=== PATIENT | female | born 1985 | race Caucasian/White ===

== ENCOUNTER 2018-03-28 12:34 | Inpatient (IN) | END 2018-03-29 15:38 | disposition home or self-care (01) | DRG 833 ==

== ENCOUNTER 2018-04-18 16:08 | Inpatient (IN) | payer OTHER ==
[~2018-04-18] VITALS: Ht 157.5 cm; Wt 90.9 kg
[~2018-04-18 16:08] MED LIST: PREN-99 PO
[2018-04-18 16:54] VITALS: Ht 157.5 cm; Wt 90.9 kg
[2018-04-18] MEDS ORDERED: AL HYDROX/MG HYDROX/SIMETH 30 ML CUP PO PRN (22:30)
[2018-04-18] MEDS ORDERED: ACETAMINOPHEN 325 MG TAB PO PRN (22:30)
[2018-04-18] MEDS: LACTATED RINGER'S 1,000 ML IV SCH (23:47)
--- NOTE | 2018-04-19 03:05 | TRIAGE ---
OB Triage Datetime Report Generated by CPN: 04/19/2018 03:04 Datetime: 04/19/2018 01:00 Stage of : Antepartum Labor Evaluation Frequency: NONE Monitor Mode: External Resting Tone Arp: Relaxed Heart Rate FHR Baseline Rate: 125 Monitor Mode: External US Variability: Moderate 6-25 bpm Accelerations: 15X15 Decelerations: None Category: Category I Pain Assessment Pain Scale: 0 Pain Presence: None/Denies Pain Type: N/A Datetime: 04/19/2018 00:11 Stage of : Antepartum Assessment Type: Admission Assessment Vaginal Bleeding: None Maternal Assessment Level of Consciousness: Fully Conscious DTR's/Clonus: DTRs 2+; No Clonus Headache: Denies Blurred Vision: No Respiratory Effort: Unlabored; Regular Rhythm; Equal Expansion Breath Sounds, Left: Clear and Equal Breath Sounds, Right: Clear and Equal Nausea/Vomiting: Denies RUQ Epigastric Pain: Denies Lower Extremities Edema: None Degree: None Upper Extremities Edema: None Degree: None Facial Edema: None Fall Risk Assessment History of Falling: (0) No Secondary Diagnosis: (0) No Ambulatory Aid: (0) Bedrest/Nurse Assist IV Therapy: (20) Yes Gait: (0) Normal/Bedrest/Immobile Mental Status: (0) Oriented to Own Ability Fall Score: 20 Fall Risk Score Definition: No Risk: No action required Labor Evaluation Frequency: NONE Resting Tone Arp: Relaxed Heart Rate FHR Baseline Rate: 125 Variability: Moderate 6-25 bpm Accelerations: 15X15 Decelerations: None Category: Category I Pain Assessment Pain Scale: 0 Pain Presence: None/Denies Pain Type: N/A Vaginal Exam Membrane Status: Intact Datetime: 04/18/2018 20:56 Monitor Mode: External Quality: Mild Pattern: Normal: <= 5 Contractions in 10 Minutes Resting Tone Arp: Relaxed Heart Rate FHR Baseline Rate: 120 Monitor Mode: External US FHR Baseline Changes: No Baseline Change Variability: Moderate 6-25 bpm Accelerations: 15X15 Decelerations: None Category: Category I Datetime: 04/18/2018 20:13 Monitor Mode: External Pattern: Normal: <= 5 Contractions in 10 Minutes Resting Tone Arp: Relaxed Heart Rate FHR Baseline Rate: 130 Monitor Mode: External US FHR Baseline Changes: No Baseline Change Variability: Moderate 6-25 bpm Accelerations: 15X15 Decelerations: None Category: Category I Datetime: 04/18/2018 19:29 Stage of : OB Triage Monitor Mode: External Quality: Mild Pattern: Normal: <= 5 Contractions in 10 Minutes Resting Tone Arp: Relaxed Heart Rate FHR Baseline Rate: 125 Monitor Mode: External US FHR Baseline Changes: No Baseline Change Variability: Moderate 6-25 bpm Accelerations: 15X15 Decelerations: None Category: Category I Pain Assessment Pain Scale: 0 Pain Presence: None/Denies Pain Type: N/A Datetime: 04/18/2018 18:28 Labor Evaluation Frequency: 0 Monitor Mode: External Heart Rate FHR Baseline Rate: 120 Monitor Mode: External US FHR Baseline Changes: No Baseline Change Variability: Moderate 6-25 bpm Accelerations: 15X15 Decelerations: None Category: Category I Pain Presence: None/Denies Datetime: 04/18/2018 16:54 Labor Evaluation Frequency: 0 Monitor Mode: External Heart Rate FHR Baseline Rate: 120 Monitor Mode: External US FHR Baseline Changes: No Baseline Change Variability: Moderate 6-25 bpm Accelerations: 15X15 Decelerations: None Category: Category I Pain Presence: None/Denies Datetime: 04/18/2018 16:27 Stage of : OB Triage Assessment Type: Triage Maternal Assessment Level of Consciousness: Fully Conscious DTR's/Clonus: DTRs 2+; No Clonus Headache: Denies Blurred Vision: No Respiratory Effort: Unlabored; Regular Rhythm; Equal Expansion Breath Sounds, Left: Clear and Equal Breath Sounds, Right: Clear and Equal Nausea/Vomiting: Denies RUQ Epigastric Pain: Denies Facial Edema: None Temperature Route: Axillary Fall Risk Assessment History of Falling: (0) No Secondary Diagnosis: (0) No Ambulatory Aid: (0) Bedrest/Nurse Assist IV Therapy: (0) No Gait: (0) Normal/Bedrest/Immobile Mental Status: (0) Oriented to Own Ability Fall Score: 0 Fall Risk Score Definition: No Risk: No action required Datetime: 04/18/2018 15:32 Time of Arrival: 04/18/2018 16:20 EGA: 37.2 Arrived By: Ambulatory Arrived From: Office Chief Complaint: PT SENT FROM [facility] FOR LONGER MONITORING Movement: Present Contractions: Denies/Absent Rupture of Membranes: Denies Vaginal Bleeding: None Vaginal Discharge: Denies Recent Sexual Intercouse: Denies Abdominal Trauma: Not Applicable Patient Complaints: None Initial Plan: NST, BPP Datetime: 03/29/2018 16:00 Stage of : Antepartum Maternal Assessment Level of Consciousness: Fully Conscious Headache: Denies Nausea/Vomiting: Denies Pain Presence: None/Denies Datetime: 03/29/2018 15:03 Stage of : Antepartum Maternal Assessment Level of Consciousness: Fully Conscious Headache: Denies Nausea/Vomiting: Denies Pain Presence: None/Denies Datetime: 03/29/2018 14:00 Stage of : Antepartum Maternal Assessment Level of Consciousness: Fully Conscious Headache: Denies Nausea/Vomiting: Denies Pain Presence: None/Denies Datetime: 03/29/2018 13:57 Maternal Assessment Level of Consciousness: Fully Conscious Headache: Denies Blurred Vision: No Respiratory Effort: Unlabored Nausea/Vomiting: Denies RUQ Epigastric Pain: Denies Pain Presence: None/Denies Datetime: 03/29/2018 13:00 Stage of : Antepartum Maternal Assessment Level of Consciousness: Fully Conscious Headache: Denies Nausea/Vomiting: Denies Pain Presence: None/Denies Datetime: 03/29/2018 12:00 Maternal Assessment Level of Consciousness: Fully Conscious Headache: Denies Blurred Vision: Yes Respiratory Effort: Unlabored Nausea/Vomiting: Denies RUQ Epigastric Pain: Denies Bedside Blood Glucose: 83 Resting Tone Arp: Relaxed Pain Presence: None/Denies Datetime: 03/29/2018 11:06 Stage of : Antepartum Maternal Assessment Level of Consciousness: Fully Conscious Headache: Denies Blurred Vision: No Respiratory Effort: Unlabored Nausea/Vomiting: Denies RUQ Epigastric Pain: Denies Labor Evaluation Frequency: 0 Monitor Mode: External Resting Tone Arp: Relaxed Heart Rate FHR Baseline Rate: 120 Monitor Mode: External US Variability: Moderate 6-25 bpm Accelerations: 15X15 Decelerations: None Pain Assessment Pain Scale: 0 Pain Presence: None/Denies Vaginal Exam Membrane Status: Intact Vaginal Bleeding: None Datetime: 03/29/2018 10:07 Comments: nst q shift Datetime: 03/29/2018 09:54 Assessment Type: Ongoing Assessment Maternal Assessment Level of Consciousness: Fully Conscious DTR's/Clonus: DTRs 2+; No Clonus Headache: Denies Blurred Vision: No Respiratory Effort: Unlabored; Regular Rhythm; Equal Expansion Breath Sounds, Left: Clear and Equal Breath Sounds, Right: Clear and Equal Nausea/Vomiting: Denies RUQ Epigastric Pain: Denies Lower Extremities Edema: None Degree: None Upper Extremities Edema: None Degree: None Facial Edema: None Fall Risk Assessment History of Falling: (0) No Secondary Diagnosis: (0) No Ambulatory Aid: (0) Bedrest/Nurse Assist IV Therapy: (20) Yes Gait: (0) Normal/Bedrest/Immobile Mental Status: (0) Oriented to Own Ability Fall Score: 20 Fall Risk Score Definition: No Risk: No action required Datetime: 03/29/2018 09:50 Maternal Assessment Level of Consciousness: Fully Conscious DTR's/Clonus: DTRs 2+ Headache: Denies Blurred Vision: No Respiratory Effort: Unlabored Breath Sounds, Left: Clear and Equal Breath Sounds, Right: Clear and Equal Nausea/Vomiting: Denies RUQ Epigastric Pain: Denies Bedside Blood Glucose: 79 Pain Presence: None/Denies Datetime: 03/29/2018 09:08 Respiratory Effort: Unlabored Labor Evaluation Frequency: 0/hr Monitor Mode: External Heart Rate FHR Baseline Rate: 120 Monitor Mode: External US Variability: Moderate 6-25 bpm Accelerations: 15X15 Decelerations: None Pain Presence: None/Denies Datetime: 03/29/2018 08:04 Assessment Type: Ongoing Assessment Maternal Assessment Level of Consciousness: Fully Conscious DTR's/Clonus: DTRs 2+; No Clonus Headache: Denies Blurred Vision: No Respiratory Effort: Unlabored; Regular Rhythm; Equal Expansion Breath Sounds, Left: Clear and Equal Breath Sounds, Right: Clear and Equal Nausea/Vomiting: Denies RUQ Epigastric Pain: Denies Lower Extremities Edema: None Degree: None Upper Extremities Edema: None Degree: None Facial Edema: None Fall Risk Assessment History of Falling: (0) No Secondary Diagnosis: (0) No Ambulatory Aid: (0) Bedrest/Nurse Assist IV Therapy: (0) No Gait: (0) Normal/Bedrest/Immobile Mental Status: (0) Oriented to Own Ability Fall Score: 0 Fall Risk Score Definition: No Risk: No action required Datetime: 03/29/2018 07:16 Stage of : Antepartum Labor Evaluation Frequency: 0 Monitor Mode: External Resting Tone Arp: Relaxed Heart Rate FHR Baseline Rate: 125 Monitor Mode: External US Variability: Moderate 6-25 bpm Accelerations: 15X15 Decelerations: None Pain Presence: None/Denies Datetime: 03/29/2018 06:59 Labor Evaluation Frequency: NONE Monitor Mode: External Resting Tone Arp: Relaxed Heart Rate FHR Baseline Rate: 120 Monitor Mode: External US Variability: Moderate 6-25 bpm Accelerations: 15X15 Decelerations: None Category: Category I Pain Presence: None/Denies Pain Type: N/A Datetime: 03/29/2018 06:20 Stage of : Antepartum Datetime: 03/29/2018 06:00 Labor Evaluation Frequency: NONE Monitor Mode: External Resting Tone Arp: Relaxed Heart Rate FHR Baseline Rate: 120 Variability: Moderate 6-25 bpm Comments: TRACING UNREADABLE DUE TO LOC WITH PT'S POSITION WHILE SLEEPING. Pain Presence: None/Denies Pain Type: N/A Datetime: 03/29/2018 05:06 Stage of : Antepartum Temperature Route: Oral Contraction Comments: PT DENIES CRAMPING Comments: PT STATES + FM Pain Presence: None/Denies Pain Type: N/A Vaginal Exam Membrane Status: Intact Datetime: 03/29/2018 05:00 Labor Evaluation Frequency: X4 Monitor Mode: External Duration (sec)2399: 60-100 Resting Tone Arp: Relaxed Heart Rate FHR Baseline Rate: 120 Variability: Moderate 6-25 bpm Comments: LOC DUE TO MATERNAL OBESITY AND ACTIVE FETUS Pain Presence: None/Denies Pain Type: N/A Datetime: 03/29/2018 04:00 Labor Evaluation Frequency: X1 Monitor Mode: External Duration (sec)2399: 70 Quality: Mild Resting Tone Arp: Relaxed Heart Rate FHR Baseline Rate: 125 Variability: Moderate 6-25 bpm Comments: TRACING UNREADABLE DUE TO LOC Pain Presence: None/Denies Pain Type: N/A Pain Assessment Comments: PT SLEEPING BUT EASILY AROUSED Datetime: 03/29/2018 03:00 Labor Evaluation Frequency: X1 Monitor Mode: External Duration (sec)2399: 70 Quality: Mild Resting Tone Arp: Relaxed Heart Rate FHR Baseline Rate: 135 Monitor Mode: External US Variability: Moderate 6-25 bpm Accelerations: 15X15 Decelerations: None Category: Category I Pain Presence: None/Denies Pain Type: N/A Pain Assessment Comments: PT SLEEPING WITH EVEN UNLABORED BREATHING Datetime: 03/29/2018 02:03 Stage of : Antepartum Datetime: 03/29/2018 02:00 Labor Evaluation Frequency: X3 Monitor Mode: External Duration (sec)2399: 50-90 Quality: Mild Resting Tone Arp: Relaxed Heart Rate FHR Baseline Rate: 125 Monitor Mode: External US Variability: Moderate 6-25 bpm Accelerations: 15X15 Decelerations: None Category: Category I Pain Presence: None/Denies Pain Type: N/A Pain Assessment Comments: PT SLEEPING BUT EASILY AROUSED. PT DENIES ANY NEEDS AT THIS TIME. Datetime: 03/29/2018 01:00 Labor Evaluation Frequency: X1 Monitor Mode: External Duration (sec)2399: 50 Quality: Mild Resting Tone Arp: Relaxed Heart Rate FHR Baseline Rate: 125 Monitor Mode: External US Variability: Moderate 6-25 bpm Accelerations: 15X15 Decelerations: None Category: Category I Pain Presence: None/Denies Pain Type: N/A Datetime: 03/29/2018 00:03 Stage of : Antepartum Datetime: 03/29/2018 00:00 Labor Evaluation Frequency: X2 Monitor Mode: External Duration (sec)2399: 40=50 Quality: Mild Resting Tone Arp: Relaxed Heart Rate FHR Baseline Rate: 130 Monitor Mode: External US Variability: Moderate 6-25 bpm Accelerations: 15X15 Decelerations: None Category: Category I Datetime: 03/28/2018 23:51 Stage of : Antepartum Temperature Route: Oral Contraction Comments: PT DENIES CRAMPING Comments: PT STATES BABY IS VERY ACTIVE Pain Presence: None/Denies Pain Type: N/A Pain Assessment Comments: PT DENIES ANY NEEDS AT THIS TIME Datetime: 03/28/2018 23:00 Labor Evaluation Frequency: NONE Monitor Mode: External Resting Tone Arp: Relaxed Heart Rate FHR Baseline Rate: 130 Monitor Mode: External US Variability: Moderate 6-25 bpm Accelerations: 15X15 Decelerations: None Category: Category I Pain Presence: None/Denies Pain Type: N/A Datetime: 03/28/2018 22:00 Labor Evaluation Frequency: NONE Monitor Mode: External Resting Tone Arp: Relaxed Heart Rate FHR Baseline Rate: 130 Monitor Mode: External US Variability: Moderate 6-25 bpm Accelerations: 15X15 Decelerations: None Category: Category I Pain Presence: None/Denies Pain Type: N/A Datetime: 03/28/2018 21:00 Labor Evaluation Frequency: NONE Monitor Mode: External Resting Tone Arp: Relaxed Heart Rate FHR Baseline Rate: 125 Monitor Mode: External US Variability: Moderate 6-25 bpm Accelerations: 15X15 Decelerations: None Category: Category I Pain Presence: None/Denies Pain Type: N/A Datetime: 03/28/2018 20:00 Labor Evaluation Frequency: NONE Monitor Mode: External Resting Tone Arp: Relaxed Heart Rate FHR Baseline Rate: 125 Monitor Mode: External US Variability: Moderate 6-25 bpm Accelerations: 15X15 Decelerations: None Category: Category I Pain Presence: None/Denies Pain Type: N/A Datetime: 03/28/2018 19:36 Stage of : Antepartum Assessment Type: Ongoing Assessment Maternal Assessment Level of Consciousness: Fully Conscious DTR's/Clonus: DTRs 2+; No Clonus Headache: Denies Blurred Vision: No Respiratory Effort: Unlabored; Regular Rhythm; Equal Expansion Breath Sounds, Left: Clear and Equal Breath Sounds, Right: Clear and Equal Nausea/Vomiting: Denies RUQ Epigastric Pain: Denies Lower Extremities Edema: None Degree: None Upper Extremities Edema: None Degree: None Facial Edema: None Temperature Route: Oral Fall Risk Assessment History of Falling: (0) No Secondary Diagnosis: (0) No Ambulatory Aid: (0) Bedrest/Nurse Assist IV Therapy: (0) No Gait: (0) Normal/Bedrest/Immobile Mental Status: (0) Oriented to Own Ability Fall Score: 0 Fall Risk Score Definition: No Risk: No action required Monitor Mode: External Contraction Comments: PT DENIES CRAMPING Monitor Mode: External US Comments: PT STATES + FM Pain Presence: None/Denies Pain Type: N/A Vaginal Exam Membrane Status: Intact Datetime: 03/28/2018 18:49 Labor Evaluation Frequency: 0 Monitor Mode: External Resting Tone Arp: Relaxed Heart Rate FHR Baseline Rate: 120 Monitor Mode: External US FHR Baseline Changes: No Baseline Change Variability: Moderate 6-25 bpm Accelerations: 15X15 Decelerations: None Category: Category I Datetime: 03/28/2018 18:00 Labor Evaluation Frequency: 0 Monitor Mode: External Pattern: Normal: <= 5 Contractions in 10 Minutes Resting Tone Arp: Relaxed Heart Rate FHR Baseline Rate: 120 Monitor Mode: External US FHR Baseline Changes: No Baseline Change Variability: Moderate 6-25 bpm Accelerations: 15X15 Decelerations: None Category: Category I Datetime: 03/28/2018 17:00 Labor Evaluation Frequency: 0 Monitor Mode: External Pattern: Normal: <= 5 Contractions in 10 Minutes Resting Tone Arp: Relaxed Heart Rate FHR Baseline Rate: 120 Monitor Mode: External US FHR Baseline Changes: No Baseline Change Variability: Moderate 6-25 bpm Accelerations: 15X15 Decelerations: None Category: Category I Datetime: 03/28/2018 16:21 Stage of : Antepartum Temperature Route: Oral Pain Presence: None/Denies Pain Goal: 0 Datetime: 03/28/2018 16:14 Labor Evaluation Frequency: 6-8 Monitor Mode: External Duration (sec)2399: 80-100 Quality: Mild Resting Tone Arp: Relaxed Contraction Comments: DOES NOT FEEL CONTRACTIONS Heart Rate FHR Baseline Rate: 120 Monitor Mode: External US FHR Baseline Changes: No Baseline Change Variability: Moderate 6-25 bpm Accelerations: 15X15 Decelerations: None Category: Category I Datetime: 03/28/2018 16:09 Stage of : Antepartum Datetime: 03/28/2018 15:40 Monitor Mode: External Heart Rate FHR Baseline Rate: 120 Monitor Mode: External US FHR Baseline Changes: No Baseline Change Variability: Moderate 6-25 bpm Accelerations: 15X15 Decelerations: None Category: Category I Datetime: 03/28/2018 14:17 Assessment Type: Admission Assessment Vaginal Bleeding: None Maternal Assessment Level of Consciousness: Fully Conscious DTR's/Clonus: DTRs 2+; No Clonus Headache: Denies Blurred Vision: No Respiratory Effort: Unlabored; Regular Rhythm; Equal Expansion Breath Sounds, Left: Clear and Equal Breath Sounds, Right: Clear and Equal Nausea/Vomiting: Denies RUQ Epigastric Pain: Denies Facial Edema: None Fall Risk Assessment History of Falling: (0) No Secondary Diagnosis: (0) No Ambulatory Aid: (0) Bedrest/Nurse Assist IV Therapy: (20) Yes Gait: (0) Normal/Bedrest/Immobile Mental Status: (0) Oriented to Own Ability Fall Score: 20 Fall Risk Score Definition: No Risk: No action required Heart Rate FHR Baseline Rate: 130 Pain Assessment Pain Scale: 0 Datetime: 03/28/2018 13:15 Time of Arrival: 03/28/2018 13:15 EGA: 34.2 Arrived By: Wheelchair
[2018-04-19] MEDS: LACTATED RINGER'S 1,000 ML IV SCH ×3 (06:34→22:17)
[2018-04-19] MEDS: PRENATAL VITAMIN PO SCH (09:35)
[2018-04-20] MEDS: LACTATED RINGER'S 1,000 ML IV SCH ×2 (00:50→08:34)
--- NOTE | 2018-04-20 03:51 | CONS ---
DATE OF ADMISSION: 04/18/2018 DATE OF CONSULTATION: 04/19/2018 HISTORY OF PRESENT ILLNESS: The patient was admitted from testing yesterday after she had some nonreactive heart tone for a few minutes. Also, at the clinic, her MARIA G was 6.2 cm at the hospital, her heart tone are interrupted but ove rall reassuring, received high received hydration and her MARIA G today is 6.2. PLAN: I do recommend in-house management until her MARIA G is 8. Otherwise, continue with the in-house management and continue with the heart tone monitoring continuously. Secondarily, she is diabe tic, so treat the diabetes as previously stated in the recommendation. Lastly, she does have a histo ry of oligohydramnios; therefore, more precaution is necessary in terms of her management. Please do not discharge until it is okay by a perinatologist. She can delivery if there is nonreassuring feta l heart tones or if she is in labor. Dictated By: MITESH BERRIOS/USAMA Conf#: [id number] DID#: [id number]
[2018-04-20] MEDS: PRENATAL VITAMIN PO SCH (08:34)
[2018-04-20] MEDS ORDERED: OXYTOCIN 30 UNITS/LR 500 ML IV SCH ×3 (16:30→20:51)
[2018-04-20] MEDS ORDERED: CEFAZOLIN 2 GM/50 ML (PMX) 50 ML IVPB ONE (16:30)
[2018-04-20] MEDS ORDERED: CARBOPROST 250 MCG INJ IM PRN ×2 (16:30→21:00)
[2018-04-20] MEDS ORDERED: LIDOCAINE 1% (MPF) 30 ML INJ INJ PRN (16:30)
[2018-04-20] MEDS ORDERED: OXYTOCIN 30 UNITS/LR 500 ML IV PRN ×2 (16:30→21:00)
[2018-04-20] MEDS ORDERED: LACTATED RINGER'S 1,000 ML IV PRN (16:30)
[2018-04-20] MEDS ORDERED: METHYLERGONOVINE 0.2 MG INJ IM PRN ×2 (16:30→21:00)
[2018-04-20] MEDS ORDERED: MISOPROSTOL 200 MCG TAB PR PRN ×2 (16:30→21:00)
[2018-04-20] MEDS ORDERED: CITRIC ACID/NA CITRATE 30 ML CUP PO ONE (19:20)
--- NOTE | 2018-04-20 19:21 | PREAC ---
Date/Time of Note Date/Time of Note DATE: 04/20/18 TIME: 19:20 Anesthesia Eval and Record Evaluation Time Pre-Procedure Interview DATE: 04/20/18 TIME: 19:20 Age 32 Sex female NPO: Other (7) lunch 1300 Preoperative diagnosis low MARIA G 37 Planned procedure c section Past Medical History Past Medical History: Includes : : (4), Para: (2), Gestational age: (38), Gestational diabetes Surgery & Anesthesia Issues No known issue Meds Anticoagulation: No Beta Fritz within 24 hr: No Reason Beta Fritz not given: Pt. not on B-Fritz Reported Medications Vit #76/Iron,Carb/FA (Pnv 29-1 Tablet) 1 Each Tablet, 1 EACH PO DAILY, TAB 03/28/18 Current Medications Lactated Ringer's 1,000 ml @ 125 mls/hr Q8H IV Last administered on 04/20/18at 08:34; Admin Dose 125 MLS/HR; Start 04/18/18 at 22:17 Prenat Multivit/ [place]/Iron/Folic Ac () 1 tab DAILY PO Last administered on 04/20/18at 08:34; Admin Dose 1 TAB; Start 04/19/18 at 09:00 Acetaminophen (Tylenol Tab) 650 mg Q4H PRN PO MILD PAIN(1-3)OR ELEVATED TEMP; Start 04/18/18 at 22:30 Al Hydrox/Mg Hydrox/Simethicone (Mag-Al Plus) 30 ml Q6H PRN PO GASTROINTESTINAL UPSET; Start 04/18/18 at 22:30 Lidocaine (Xylocaine 1% (Mpf)) 30 ml ONCE PRN INJ EPISIOTOMY; Start 04/20/18 at 16:30 Oxytocin/Lactated Ringer's 500 ml @ 500 mls/hr ONCE POST IV ; Start 04/20/18 at 16:30 Oxytocin/Lactated Ringer's 500 ml @ 125 mls/hr POST IV ; Start 04/20/18 at 16:30 Lactated Ringer's 1,000 ml @ 2,000 mls/hr Q30M PRN IV ANESTHESIA Last administered on 04/20/18at 19:17; Admin Dose 2,000 MLS/HR; Start 04/20/18 at 16:30 Oxytocin/Lactated Ringer's 500 ml @ 0 mls/hr ONCE PRN IV VAGINAL BLEEDING; Start 04/20/18 at 16:30 Methylergonovine Maleate (Methergine) 0.2 mg ONCE PRN IM VAGINAL BLEEDING; Start 04/20/18 at 16:30 Carboprost Tromethamine (Hemabate) 250 mcg ONCE PRN IM VAGINAL BLEEDING; Start 04/20/18 at 16:30 Misoprostol (Cytotec) 1,000 mcg ONCE PRN MI VAGINAL BLEEDING; Start 04/20/18 at 16:30 Citric Acid/ Sodium Citrate (Bicitra) 30 ml ONCE ONCE PO ; Start 04/20/18 at 19:20; Stop 04/20/18 at 19:21; Status UNV Meds reviewed: Yes Allergies Coded Allergies: No Known Allergy (Unverified , 03/28/18) Allergies Reviewed: Yes Labs/Studies Labs Reviewed: Reviewed by anesthesiologist Result Diagram: 04/18/18 3372 test: Positive Studies: ECG (n/a), CXR (n/a) Pre-procedure Exam Airway: Adequate mouth opening Mallampati: Mallampati I Teeth: Normal Lung: Normal Heart: Normal ASA Physical Status ASA physical status: 2 Emergency: None Planned Anesthetic Neuraxial: Spinal Planned Pain Management Sub-arachniod narcotics Pre-operative Attestations Prior to commencing anesthesia and surgery, the patient was re-evaluated, there was verification of: *The patient's identity *The results of appropriate recent lab work and preoperative vital signs *The above evaluation not changing prior to induction *Anesthetic plan, risk benefits, alternative and complications discussed with patient/family; questions answered; patient/family understands, accepts and wishes to proceed. SAVITA CAPUTO MD Apr 20, 2018 19:21
[2018-04-20] MEDS ORDERED: METOCLOPRAMIDE 10 MG INJ ONE (19:43)
[2018-04-20] MEDS ORDERED: ONDANSETRON 4 MG INJ ONE (19:43)
[2018-04-20] MEDS ORDERED: morphine SULFATE/PF (10 MG/10 ML) INJ ONE (19:43)
[2018-04-20] MEDS ORDERED: KETOROLAC 30 MG INJ ONE (19:52)
--- NOTE | 2018-04-20 20:02 | PREOPHP ---
DATE OF ADMISSION: 04/18/2018 HISTORY OF PRESENT ILLNESS: This is a 32-year-old lady, 4, para 2 with 1 . Her EDC 05/07/2018 at 37 and 1/7 weeks , admitted to labor and delivery area for IV hydration. Her A FI on admission was 5.3 to 6.3, so she was given IV hydration for the last 48 hours. The MARIA G today d ropped from 6.3 to 4.4, so Dr. Luther was consulted on this and that she advised the patient to be del ivered with indication of severe oligohydramnios. She was also noted to be having some on and off de celeration on the baby and she has also gestational diabetes on diet control. She was scheduled to h ave a repeat , which is what the patient desires. The procedures were explained to her, and she understood everything totally. The risks, benefits, and alternatives were discussed with her as well. PAST PERSONAL HISTORY: No history of TB or asthma. ALLERGIES: NO ALLERGIES. SOCIAL HISTORY: The patient does not smoke. She does not drink. MEDICATIONS: She does not take any drugs except her iron and vitamins. GYNECOLOGIC HISTORY: She had menarche at the age of 12, every 28 days interval, 3 to 4 days duration , and moderate in amount. FAMILY HISTORY: Noncontributory except for family history of diabetes and hypertension. She is grav padilla 4, para 2. First delivery was in 1999 and second in 2009, both by , and she had an abor tion in 2006. REVIEW OF SYSTEMS: CARDIOVASCULAR: No chest pains. RESPIRATORY: No cough. GASTROINTESTINAL: No diarrhea, no vomiting. GENITOURINARY: No dysuria. PHYSICAL EXAMINATION: GENERAL: Reveals a conscious, coherent lady, in no acute distress. VITAL SIGNS: Her blood pressure 120/80, pulse rate 80 per minute, respirations 16 per minute. BREASTS: Within normal limits. HEART: Within normal limits. LUNGS: Within normal limits. ABDOMEN: Term size uterus. Soft. No tenderness noted. Fundic height 36 cm. heart tones 140 per minute. PELVIC: Revealed the cervix to be 1 cm dilated and thick, station floating in cephalic presentation with the bag of water intact. EXTREMITIES: No pedal edema. ADMITTING DIAGNOSIS: A 37 and 1/7 weeks intrauterine with oligohydramnios and 2 days after hydration, the MARIA G was 4.4 and below 5. As mentioned, the case was discussed with Dr. Luther and she advised the patient to be delivered with the indications of on and off deceleration, severe oligohyd ramnios, and gestational diabetes with 2 previous C-sections. Dictated By: ESTHELA EASTMAN/NTS Conf#: [id number] DID#: [id number]
[2018-04-20] MEDS ORDERED: OXYTOCIN 30 UNITS/LR 500 ML IV ONE (20:40)
[2018-04-20] MEDS ORDERED: LACTATED RINGER'S 1,000 ML IV SCH (20:51)
--- NOTE | 2018-04-20 20:51 | OPPN ---
Date/Time of Note Date/Time of Note DATE: 04/20/18 TIME: 20:49 Operative Report Planned Procedure Procedure date Apr 20, 2018 Procedure(s) REPEAT CSECTION LYSIS OF ADHESION Performed by see signature line Cell Biology Scientist: KARI SINGH 2nd Cell Biology Scientist none Anesthesiologist: SAVITA CAPUTO MD Pre-procedure diagnosis 37 WEEKS 3/7 IUP PREVIOS CSECTION DECELERATION [id number] Anesthesia Type: [id number] spinal Post-Procedure Post-procedure diagnosis 37 WEEKS 3/7 IUP PREVIOS CSECTION DECELERATION CORD AROUND THE NECK X1 Findings Live Baby BOY, Apgars 8and 9, weight 5LBS 15 IZ [id number] Estimated Blood Loss: 500 - 600 mls Specimen(s) none Grafts/Implant(s) PLACENTA Complication(s) none ESTHELA CASTILLO MD Apr 20, 2018 20:51
--- NOTE | 2018-04-20 20:54 | PAC ---
Date/Time of Note Date/Time of Note DATE: 04/20/18 TIME: 20:53 Post-Anesthesia Notes Post-Anesthesia Note Last documented vital signs BP 110/56 HR 80, RR19, sat%99 temp 98.7 Activity: WNL Respiratory function: WNL Cardiovascular function: WNL Mental status: Baseline Pain reasonably controlled: Yes Hydration appropriate: Yes Nausea/Vomiting absent: No SAVITA CAPUTO MD Apr 20, 2018 20:54
[2018-04-20] MEDS ORDERED: METOCLOPRAMIDE 10 MG INJ IV PRN (21:00)
[2018-04-20] MEDS ORDERED: morphine 2 MG INJ IV PRN ×3 (21:00)
[2018-04-20] MEDS ORDERED: NALOXONE (0.4 MG/ML) INJ IV PRN (21:00)
[2018-04-20] MEDS ORDERED: DIPHENHYDRAMINE 50 MG INJ IV PRN ×2 (21:00)
[2018-04-20] MEDS ORDERED: LANOLIN HPA 1 PKT TOP PRN (21:00)
[2018-04-20] MEDS ORDERED: METHYLERGONOVINE 0.2 MG TAB PO PRN (21:00)
[2018-04-20] MEDS ORDERED: KETOROLAC 30 MG INJ IV PRN (21:00)
[2018-04-20] MEDS ORDERED: morphine (1 MG/ML) 10ML SYRINGE IV PRN ×3 (21:00)
[2018-04-20] MEDS ORDERED: HYDROCODONE/APAP (5/325) TAB PO PRN (21:00)
[2018-04-20] MEDS ORDERED: ONDANSETRON 4 MG INJ IV PRN ×2 (21:00)
[2018-04-20] MEDS: SENNA/DOCUSATE NA (8.6MG/50MG) TAB PO SCH (21:00)
[2018-04-20 23:20] VITALS: BP 125/64; PULSE 82; RESP 18
[2018-04-21 00:20] VITALS: BP 136/63; PULSE 71; RESP 19
[2018-04-21 04:00] VITALS: BP 123/66; PULSE 97; RESP 16
--- NOTE | 2018-04-21 06:33 | NUR ---
EOSS: PATIENT IN STABLE CONDITION. IN OBSERVATION IN NURSERY DUE TO RESPIRATORY DIFFICULTY/ GRUNTING. PATIENT LOCHIA MODERATE AMOUNT, FUNDUS FIRM. PATIENT IN BED RESTING, IMPROVED NAUSEA, NO VOMITING. TOLERATING VERY SMALL AMOUNTS OF ICE CHIPS. AFEBRILE.
[2018-04-21 08:00] VITALS: BP 123/66; PULSE 86; RESP 18
[2018-04-21] MEDS: PRENATAL VITAMIN PO SCH (09:00)
[2018-04-21] MEDS: SENNA/DOCUSATE NA (8.6MG/50MG) TAB PO SCH ×2 (09:00→23:33)
[2018-04-21 12:00] VITALS: BP 112/61; PULSE 81; RESP 18
[2018-04-21 16:00] VITALS: BP 94/57; PULSE 90; RESP 18
--- NOTE | 2018-04-21 18:10 | NUR ---
EOSS CONDITION IS STABLE. TAKING CLEAR LIQUIDS NOW SLOWLY. TORADOL FOR PAIN ONCE WITH GOOD RESULTS. BREST PUMP AT THE BEDSDIE. ENCOURGED TO USE PUMP EVERY 3 HOURS. FAMILY AT THE BEDSIDE FOR SUPPORT. BABY REMAINS IN THE NICU
--- NOTE | 2018-04-21 19:47 | OPR ---
DATE OF OPERATION: 04/20/2018 PREOPERATIVE DIAGNOSES: 37 and 3/7 weeks intrauterine , oligohydramnios, spontaneous decele ration, gestational diabetes on diet control, and two previous C-sections. POSTOPERATIVE DIAGNOSIS: 37 and 3/7 weeks intrauterine , oligohydramnios, spontaneous decel eration, gestational diabetes on diet control, two previous C-sections, severe pelvic and abdominal a dhesions. SURGEON: Esthela Wei MD CABLE INSTALLER REPAIRER HELPER: Geeta Mallory MD ANESTHESIA: Spinal. OPERATIVE TECHNIQUE: Under spinal anesthesia, the patient was prepped and draped in the usual fashio n for abdominal surgery. After checking for the effect of the anesthesia, the previous Pfannenstiel scar was excised. A 12 cm skin incision was performed. The incision was carried from the skin up to the fascia. Upon opening the skin up to the fascia, small blood vessels were noted to be oozing and these were all cauterized. Fascia was opened transversely followed by splitting the muscles vertica lly and the peritoneum vertically. Upon opening the abdominal cavity, the omentum was noted to be at tached all over the anterior parietal peritoneum. All these adhesions had to be lysed by sharp and b esmer dissection. The lower uterine segment was noted to be very thin. A bladder blade was put in pl harish and incision was performed about 2 inches above the lower uterine segment. The incision was dumont ied from the serosa up to the endometrium and the ginger was carried sideways with the aid of my two fi ngers. My left hand was inserted on the lower segment of the uterus and the bag of water was rupture d. Clear fluid was noted. Baby's head was delivered with good fundal pressure. Baby's airway was q uickly suctioned with amniotic fluid. There was one loop of tight cord around the baby's neck that n eeds to be released prior to the delivery of the rest of the body of the baby. [facility] after 30 seconds. Baby's cord blood was obtained. The placenta was delivered manual ly and complete. The uterus was exteriorized. The uterus was cleansed with wet lap sponge to make s ure that no membranes were left behind. After correct sponge count, the uterus was closed in t he usual fashion using #1 chromic for the first layer. Continuous locking suture was used followed b y #1 chromic for the second layer. Imbricating sutures were used. Bleeders were checked and there w as no bleeding noted. After checking for new bleeders in which there were none, both tubes and ovari es were inspected. They were healthy looking. The back of the uterus was checked for any hematoma a nd there was none noted. The uterus was put back to the pelvic cavity. Once again, uterine incision was checked for any bleeders and there were no bleeding noted. After correct sponge count, needle c ount and instrument count as confirmed by the hvac residential service technician and python developer, the abdomen was closed in th e usual fashion using 0 Vicryl for the peritoneum, 0 Vicryl for the muscles. For the fascia, 0 Vicry l continuous stitch was used followed by few [id number] sutures. For the subcutaneous tissue, i t was closed with 3-0 Vicryl and the skin was closed with 3-0 Vicryl, subcuticular suture was used. The patient tolerated the procedure well. Estimated blood loss was about 600 mL. Vital signs were s table during and after the procedure. She delivered a healthy baby boy, Apgars 8 and 9 at 24 hours p m 04/20/2018, weighing 5 pounds 15 ounces or 2685 grams. Dictated By: ESTHELA EASTMAN/USAMA Conf#: [id number] DID#: [id number]
[2018-04-21 20:00] VITALS: BP 136/72; PULSE 81; RESP 18
[2018-04-21] MEDS: IBUPROFEN 800 MG TAB PO PRN (23:33)
[2018-04-22 04:00] VITALS: BP 106/64; PULSE 70; RESP 17
--- NOTE | 2018-04-22 04:46 | NUR ---
VSS. Pt ambulated to BR voidx2 without problems. pericare done. Breast pmping intiated. Denie any pain at this time.
--- NOTE | 2018-04-22 07:46 | OPPN ---
Date/Time of Note Date/Time of Note DATE: 04/21/18 TIME: 07:44 A 32 year female s/p duramorph for post op pain POD#1 is doing fine, No pain, itching, headache, N/V, neural deficit. SAVITA CAPUTO MD Apr 22, 2018 07:46
[2018-04-22 08:00] VITALS: BP 108/63; PULSE 60; RESP 18
[2018-04-22] MEDS: PRENATAL VITAMIN PO SCH (09:16)
[2018-04-22] MEDS: SENNA/DOCUSATE NA (8.6MG/50MG) TAB PO SCH ×2 (09:16→22:13)
[2018-04-22] MEDS: IBUPROFEN 800 MG TAB PO PRN (09:23)
--- NOTE | 2018-04-22 10:57 | NUR ---
SS Note: NICU Database & Consult Pt is a 32YO female admitted to [facility] on 04/18/18 for delivery of live male. Miguel Ángel Hall admitted to NICU on 04/21/18. G4, P3. 37.4 weeks: DALE 05/07/18. 2685g, 46.99cm. Apgars 8, 9. MoB appears to be coping appropriately, appears well-groomed, pleasant affect. FoB is Mark Oviedo, 08/14/1983, . MoB and Fob live together, not , with MoB two other children ages 16 & 8YO. MoB denies drugs or ETOH concerns, denies tobacco use in home, denies DV, sexual abuse. MoB denies mental health hx or current tx, denies SI/HI, denies depression or anxiety, denies PPD. MoB states she has good support system with mother and sister, other children being watched by them at this time. Pt received good care. Pt denies any current DCFS involvement. Pt states she has been well communicated with by staff, displays good understanding of medical condition. Pt states she has all provision for baby including car seat and crib, is connected to [employer], [employer]. [employer]Y [employer]Y reviewed medical record, met with MoB at bedside, introduced self, role, limits to confidentiality. DEPUTY GRAND JURY completed NICU database and safety assessment. Pt denies any further questions or concerns at this time. Pt is cleared from a SW standpoint and will dc home with FoB when medically cleared. Addendum: 04/22/18 at 1106 by LUCY ESPARZA Amended: Links added.
[2018-04-22 16:00] VITALS: BP 106/65; PULSE 66; RESP 18
--- NOTE | 2018-04-22 17:06 | NUR ---
EOSS: PT V/S STABLE AND WNL, PO PAIN MEDS FOR PAIN MGMT AND NO C/O PAIN AT THIS TIME, HAD BM AND REGULAR DIET ORDERED, BABY IN NICU AND VISITED BAY VIA W/C. DR CASTILLO CHECKED THE PT AND DISCHARGE TOMORROW ORDER GIVEN
--- NOTE | 2018-04-22 18:26 | PN ---
Date/Time of Note Date/Time of Note DATE: 04/21/18 TIME: 10:00 Assessment/Plan VTE Prophylaxis Risk score (from Nsg)>0 risk: 3 SCD applied (from Ns): No SCD contraindicated: low risk/ambulating Pharmacological prophylaxis: NA/contraindicated Pharm contraindication: low risk/ambulating Lines/Catheters IV Catheter Type (from Nrsg): Peripheral IV Assessment/Plan Assessment/Plan POSTCSECTION DAY 1 ORDERED ADVANCE DIET TOLERATED CBC ON 3RD POSTOP DAY Result Diagram: 04/21/18 0746 04/21/18 0746 Subjective 24 Hr Interval Summary Free Text/Dictation POST CSECTION DAY 1 COMPLAIN OF INCISIONAL PAINS GOOD URINE OUTPUT PASSING GAS PER RECTUM NO BOWEL MOVEMENT YET Exam/Review of Systems Vital Signs Vitals Vital Signs Date Temp Pulse Resp B/P (MAP) Pulse Ox O2 O2 Flow FiO2 Time Delivery Rate 04/22/18 98.8 66 18 106/65 Room Air 16:00 (79) 04/22/18 98 04:00 Intake and Output 04/21/18 04/21/18 04/22/18 1515:00 23:00 07:00 IntakeIntake Total 250 ml OutputOutput Total 150 ml 750 ml 1300 ml BalanceBalance 100 ml -750 ml -1300 ml Exam VITAL SIGNS STABLE: YES AFEBRILE: YES BREAST NOT ENGORGED, NON-TENDER, NO APPRECIABLE MASS: YES LUNGS CLEAR, NO RALES, WHEEZES, RHONCHI: YES SINUS RHYTHM WITHOUT MURMUR: YES ABDOMEN: NON-TENDER FUNDUS: BELOW UMBILICUS BOWEL SOUNDS: PRESENT UTERUS: FIRM INCISION (CLEAN, DRY, AND INTACT): YES LOCHIA: LIGHT DEEP TENDON REFLEXES: 0 EXTREMITIES: NO CALF TENDERNESS EDEMA SCALE: NONE Medications Medications Current Medications Prenat Multivit/ Consumer Credit Counselor/Iron/Folic Ac () 1 tab DAILY PO Last a dministered on 04/22/18at 09:16; Admin Dose 1 TAB; Start 04/19/18 at 09:00 Acetaminophen (Tylenol Tab) 650 mg Q4H PRN PO MILD PAIN(1-3)OR ELEVATED TEMP; Start 04/18/18 at 22:30 Al Hydrox/Mg Hydrox/Simethicone (Mag-Al Plus) 30 ml Q6H PRN PO GASTROINTESTINAL UPSET Last administered on 04/20/18at 19:28; Admin Dose 30 ML; Start 04/18/18 at 22:30 Oxytocin/Lactated Ringer's 500 ml @ 500 mls/hr ONCE POST IV ; Start 04/20/18 at 16:30 Oxytocin/Lactated Ringer's 500 ml @ 125 mls/hr POST IV Last administered on 04/20/18at 22:34; Admin Dose 125 MLS/HR; Start 04/20/18 at 16:30 Methylergonovine Maleate (Methergine) 0.2 mg Q6H PRN PO VAGINAL BLEEDING; Start 04/20/18 at 21:00 Acetaminophen/ Hydrocodone Bitart ([place] (5/325)) 1 tab Q4H PRN PO PAIN LEVEL 4-6 Last administered on 04/22/18at 15:26; Admin Dose 1 TAB; Start 04/20/18 at 21:00 Acetaminophen/ Hydrocodone Bitart ([place] (5/325)) 2 tab Q4H PRN PO PAIN LEVEL 7-10; Start 04/20/18 at 21:00 Ibuprofen (Motrin) 800 mg Q8 PRN PO MILD PAIN LEVEL 1-3 Last administered on 04/22/18at 09:23; Admin Dose 800 MG; Start 04/20/18 at 21:00 Simethicone (Mylicon) 160 mg Q8H PRN PO DISTENSION/GAS/BLOATING; Start 04/20/18 at 21:00 Senna/Docusate Sodium (Senokot-S) 1 tab BID PO Last administered on 04/22/18at 09:16; Admin Dose 1 TAB; Start 04/20/18 at 21:00 Lanolin (Lanolin Hpa) 1 applic BEDSIDE MEDICATION PRN TOP BEDSIDE FOR JENNY TO NIPPLES; Start 04/20/18 at 21:00 Diphtheria/ Tetanus/Acell Pertussis (Adacel) 0.5 ml ONCE ONCE IM* ; Start 04/23/18 at 09:00; Stop 04/23/18 at 09:01 Measles/Mumps/ Rubella Vaccine Live (Mmr Ii Vaccine) 0.5 ml ONCE ONCE SC* ; St art 04/23/18 at 09:00; Stop 04/23/18 at 09:01 Oxytocin/Lactated Ringer's 500 ml @ 0 mls/hr ONCE PRN IV VAGINAL BLEEDING; Start 04/20/18 at 21:00 Methylergonovine Maleate (Methergine) 0.2 mg ONCE PRN IM VAGINAL BLEEDING; Start 04/20/18 at 21:00 Carboprost Tromethamine (Hemabate) 250 mcg ONCE PRN IM VAGINAL BLEEDING; Start 04/20/18 at 21:00 Misoprostol (Cytotec) 1,000 mcg ONCE PRN [place] VAGINAL BLEEDING; Start 04/20/18 at 21:00 ESTHELA CASTILLO MD Apr 22, 2018 18:26
--- NOTE | 2018-04-22 18:27 | PN ---
Date/Time of Note Date/Time of Note DATE: 04/22/18 TIME: 18:26 Assessment/Plan VTE Prophylaxis Risk score (from Nsg)>0 risk: 3 SCD applied (from Nsg): No SCD contraindicated: low risk/ambulating Pharmacological prophylaxis: NA/contraindicated Pharm contraindication: low risk/ambulating Lines/Catheters IV Catheter Type (from Nrsg): Peripheral IV Assessment/Plan Assessment/Plan POST CSECTION DAY 2 HOME TOMORROW CBC TOMORROW COUNSELED INSTRUCTED PRESCRIPTION GIVEN FOR PAIN RETURN TO CLINIC IN 2 WEEKS CALL OFFICE IF THERE IS ANY PROBLEM OR CONCERN CONTINUE WITH VITAMINS OD AND FERROUS SULFATE 325MG PO TID DIET ADVISED Result Diagram: 04/21/1846 04/21/1846 Subjective 24 Hr Interval Summary Free Text/Dictation POST CSECTION DAY 2 LITTLE BOWEL MOVEMENT GOOD URINE OUTPUT FEELS LESS INCISIONAL PAINS Exam/Review of Systems Vital Signs Vitals Vital Signs Date Temp Pulse Resp B/P (MAP) Pulse Ox O2 O2 Flow FiO2 Time Delivery Rate 04/22/18 98.8 66 18 106/65 Room Air 16:00 (79) 04/22/18 98 04:00 Intake and Output 04/21/18 04/21/18 04/22/18 1515:00 23:00 07:00 IntakeIntake Total 250 ml OutputOutput Total 150 ml 750 ml 1300 ml BalanceBalance 100 ml -750 ml -1300 ml Exam VITAL SIGNS STABLE: YES AFEBRILE: YES BREAST NOT ENGORGED, NON-TENDER, NO APPRECIABLE MASS: YES LUNGS CLEAR, NO RALES, WHEEZES, RHONCHI: YES SINUS RHYTHM WITHOUT MURMUR: YES ABDOMEN: NON-TENDER FUNDUS: BELOW UMBILICUS BOWEL SOUNDS: PRESENT UTERUS: FIRM INCISION (CLEAN, DRY, AND INTACT): YES LOCHIA: LIGHT DEEP TENDON REFLEXES: 0 EXTREMITIES: NO CALF TENDERNESS EDEMA SCALE: NONE Medications Medications Current Medications Prenat Multivit/ [facility]/Iron/Folic Ac () 1 tab DAILY PO Last administered on 04/22/18at 09:16; Admin Dose 1 TAB; Start 04/19/18 at 09:00 Acetaminophen (Tylenol Tab) 650 mg Q4H PRN PO MILD PAIN(1-3)OR ELEVATED TEMP; Start 04/18/18 at 22:30 Al Hydrox/Mg Hydrox/Simethicone (Mag-Al Plus) 30 ml Q6H PRN PO GASTROINTESTINAL UPSET Last administered on 04/20/18 19:28; Admin Dose 30 ML; Start 04/18/18 at 22:30 Oxytocin/Lactated Ringer's 500 ml @ 500 mls/hr ONCE POST IV ; Start 04/20/18 at 16:30 Oxytocin/Lactated Ringer's 500 ml @ 125 mls/hr POST IV Last administered on 04/20/18 22:34; Admin Dose 125 MLS/HR; Start 04/20/18 at 16:30 Methylergonovine Maleate (Methergine) 0.2 mg Q6H PRN PO VAGINAL BLEEDING; S tart 04/20/18 at 21:00 Acetaminophen/ Hydrocodone Bitart ([place] (5/325)) 1 tab Q4H PRN PO PAIN LEVEL 4-6 Last administered on 04/22/18 15:26; Admin Dose 1 TAB; Start 04/20/18 at 21:00 Acetaminophen/ Hydrocodone Bitart ([place] (5/325)) 2 tab Q4H PRN PO PAIN LEVEL 7-10; Start 04/20/18 at 21:00 Ibuprofen (Motrin) 800 mg Q8 PRN PO MILD PAIN LEVEL 1-3 Last administered on 04/22/18 09:23; Admin Dose 800 MG; Start 04/20/18 at 21:00 Simethicone (Mylicon) 160 mg Q8H PRN PO DISTENSION/GAS/BLOATING; Start 04/20/18 at 21:00 Senna/Docusate Sodium (Senokot-S) 1 tab BID PO Last administered on 04/22/18at 09:16; Admin Dose 1 TAB; Start 04/20/18 at 21:00 Lanolin (Lanolin Hpa) 1 applic BEDSIDE MEDICATION PRN TOP BEDSIDE FOR JENNY TO NIPPLES; Start 04/20/18 at 21:00 Diphtheria/ Tetanus/Acell Pertussis (Adacel) 0.5 ml ONCE ONCE IM* ; Start 04/23/18 at 09:00; Stop 04/23/18 at 09:01 Measles/Mumps/ Rubella Vaccine Live (Mmr Ii Vaccine) 0.5 ml ONCE ONCE SC* ; Start 04/23/18 at 09:00; Stop 04/23/18 at 09:01 Oxytocin/Lactated Ringer's 500 ml @ 0 mls/hr ONCE PRN IV VAGINAL BLEEDING; Start 04/20/18 at 21:00 Methylergonovine Maleate (Methergine) 0.2 mg ONCE PRN IM VAGINAL BLEEDING; Start 04/20/18 at 21:00 Carboprost Tromethamine (Hemabate) 250 mcg ONCE PRN IM VAGINAL BLEEDING; Start 04/20/18 at 21:00 Misoprostol (Cytotec) 1,000 mcg ONCE PRN [place] VAGINAL BLEEDING; Start 04/20/18 at 21:00 ESTHELA CASTILLO MD Apr 22, 2018 18:27
[2018-04-22 20:01] VITALS: BP 121/83; PULSE 83; RESP 18
[2018-04-22] MEDS: HYDROCODONE/APAP (5/325) TAB PO PRN (22:21)
[2018-04-23 04:00] VITALS: BP 114/60; RESP 17
--- NOTE | 2018-04-23 05:21 | NUR ---
EOSS: AFEBRILE. VS STABLE. VOIDING. HAD BM. STERI STRIPS INTACT TO POST OP WOUND. SMALL LOCHIA RUBRA. WENT TO NICU IN WHEELCHAIR EARLY IN SHIFT TO SEE BABY. ENCOURAGED TO BREAST PUMP EVERY 3 HOURS. ALSO DISCUSSED USING BREAST MASSAGE AND HAND EXPRESSION. PO PRN FOR PAIN CONTROL WITH GOOD RELIEF. DC HOME ORDER FOR TODAY. SHE STATES BABY MAYBE HOME TODAY OR TOMORROW.
[2018-04-23 07:43] VITALS: BP 128/73; PULSE 76; RESP 18
[2018-04-23] MEDS: HYDROCODONE/APAP (5/325) TAB PO PRN (07:43)
[2018-04-23] MEDS ORDERED: MEASLES,MUMPS,RUBELLA VACCINE INJ SC* ONE (09:00)
[2018-04-23] MEDS ORDERED: DIPHTH/TET/ACEL PERTUSS (ADULT) 0.5 ML VIAL IM* ONE (09:00)
[2018-04-23] MEDS: SENNA/DOCUSATE NA (8.6MG/50MG) TAB PO SCH (09:18)
[2018-04-23] MEDS: PRENATAL VITAMIN PO SCH (09:19)
--- NOTE | 2018-04-23 10:05 | NUR ---
visit. MOB stated she has been using breast pump and feels she is taking out more milk. MOB stated baby will be getting d/c today as well and hopes to latch baby on at home. Provided support group information. WIC has been called for pump referral. Rev. manual pump use. Encouraged MOB to call for support.
--- NOTE | 2018-04-23 10:05 | NUR ---
DISCHARGE INSTRUCTION GIVEN AND PT VERBALIZED UNDERSTANDING
--- NOTE | 2018-04-23 14:07 | NSTRPT ---
NST Information Datetime Report Generated by CPN: 04/23/2018 14:06 Datetime: 04/18/2018 15:10 NST Information EGA: 37.2 Time on Monitor: 04/18/2018 15:28 Time off Monitor: 04/18/2018 15:36 NST Duration (Min): 8 SBP: 127 DBP: 79 Test Evaluation NST Interventions: Reposition Patient Contraction Frequency: X 1 FHR Baseline : 115 Variability: Minimal - <=5bpm Accelerations: None Decelerations: None FHR Category: Category II NST Results: Non-Reactive Provider Notified: Dr Luther reviewed strip at 1536/Dr Wei notified of Dr Luther Comments: PT TO U/S MARIA G 14.2 CM CEPHALIC FBS 71 Dr Luther in to review strip-due to minimal variability ,uc , no accel wants pt to go to triage for extended monitoring Report to Gabi Z in triage, records _ preliminary us report faxed to triage Electronically Signed By E-Signature: with User ID: [id number] Datetime: 04/13/2018 13:47 NST Information EGA: 36.4 NST Duration (Min): 27 Datetime: 04/03/2018 10:56 NST Information EGA: 35.1 NST Duration (Min): 26 Datetime: 03/30/2018 13:36 NST Information EGA: 34.4 NST Duration (Min): 29 Datetime: 03/28/2018 10:43 NST Information EGA: 34.2
--- NOTE | 2018-04-29 13:35 | DS ---
DATE OF ADMISSION: 04/18/2018 DATE OF DISCHARGE: 04/23/2018 HISTORY: This is a 32-year-old lady, 4, para 2 with 1 at 37 and 1/7 weeks, admitted for IV hydration. HISTORY OF PRESENT ILLNESS: See dictated history and physical. PHYSICAL EXAMINATION: See dictated history and physical. ADMITTING DIAGNOSES: A 37 and 1/7 weeks intrauterine with oligohydramnios in spite of IV h ydration. Dr. Luther advised the patient to be delivered. So she underwent a low transverse section, lysis of severe pelvic and abdominal adhesions on 04/20/2018. She tolerated the procedure well. She did have good course. The diet was advanced from liquid to general diet. She had good bowel movement. HOSPITAL COURSE: She has less pain on the third postoperative day. She was discharged home on the t hird postoperative day on general diet and activity was restricted. She was counseled. She was inst ructed. She was given medication for pain. The hematocrit on discharge 33.8, hemoglobin 10.8. FINAL DIAGNOSES: A 37 and 3/7 weeks intrauterine with severe oligohydramnios, gestational diabetes on diet control, and 2 previous sections and severe pelvic and abdominal adhesions Hematocrit of discharge 38.8, hemoglobin 11.6. Dictated By: ESTHELA CASTILLO MD NS/NTS Conf#: [id number] DID#: [id number] CC: ESTHELA CASTILLO MD;*EndCC*
== END 2018-04-23 12:05 | disposition home or self-care (01) | DRG 788 ==
LOC: L-D 16:08 → OBT 16:08 → L-D 22:00 → PP1 04-19 17:58 → L-D 04-20 18:30 → PP1 04-20 23:18
PROVIDERS: ADMIT Obstetrics & Gynecology; ATTEND Obstetrics & Gynecology
PROC: 10D00Z1 Extraction of Products of Conception, Low, Open Approach (ICD-10-PCS; principal; 2018-04-20)
DX: O41.03X0 Oligohydramnios, third trimester, not applicable or unspecified (principal); O24.420 Gestational diabetes mellitus in childbirth, diet controlled; O34.211 Maternal care for low transverse scar from previous cesarean delivery; O69.1XX0 Labor and delivery complicated by cord around neck, with compression, not applicable or unspecified; O76 Abnormality in fetal heart rate and rhythm complicating labor and delivery; Z3A.37 37 weeks gestation of pregnancy; Z37.0 Single live birth
CPT/HCPCS: 76815; 76816; 76818; 80048; 82962; 84112; 85025; 85610; 85730; 86592; 86850; 86900; 86901; 99464; G0463; J0690; J1885; J2210; J2274; J2405; J2590; J2765; J7120